=== PATIENT | male | born 1990 | race Caucasian/White ===

== ENCOUNTER 2021-05-03 17:00 | Emergency (ER) | payer OTHER ==
[~2021-05-03] VITALS: Ht 182.9 cm; Wt 80.0 kg
[~2021-05-03 17:00] MED LIST: VALPROIC ACID 250 MG/5 ML SOLUTION UDCUP PO ONE
[2021-05-03] MEDS ORDERED: DOCU-270 PO (17:41)
[2021-05-03] MEDS ORDERED: TRIL4 PO (17:41)
[2021-05-03] MEDS ORDERED: QUET200T PO (17:41)
[2021-05-03] MEDS ORDERED: OXCA300T57 PO (17:41)
[2021-05-03] MEDS ORDERED: VALP250S23 PO (17:41)
[2021-05-03] MEDS ORDERED: CLON-592 PO ×2 (17:41)
[2021-05-03] MEDS ORDERED: CLON0.2T PO ×2 (17:41)
[2021-05-03] MEDS ORDERED: BENZ1TAB10 PO (17:41)
[2021-05-03] MEDS ORDERED: CLON-595 PO (17:41)
[2021-05-03] MEDS ORDERED: POLY17PO47 PO (17:41)
[2021-05-03] MEDS ORDERED: TRAZ-252 PO (17:41)
[2021-05-03] MEDS ORDERED: RIZA10TA42 PO (17:41)
[2021-05-03] MEDS ORDERED: HALO100V4 IM (17:41)
[2021-05-03] MEDS ORDERED: TRAZ-257 PO (17:41)
[2021-05-03] MEDS ORDERED: LevETIRAcetam 1,000 MG in DEXTROSE 5%-WATER 100 ML IV ONE (17:45)
[2021-05-03] MEDS ORDERED: LORazepam 2 MG/ML VIAL IVP ONE (17:45)
[2021-05-03 17:51] LABS: EOSINOPHILS % (AUTO) 0.1 % (1.0-6.0); HEMOGLOBIN 15.7 g/dL (13.5-17.5); LYMPHOCYTES # (AUTO) 3.3 K/uL (1.0-4.8); LYMPHOCYTES % (AUTO) 23.6 % (22.0-44.0); MEAN CORPUSCULAR HEMOGLOBIN 31.3 pg (26.0-34.0); MEAN CORPUSCULAR HGB CONC 32.8 G/dL (31.0-37.0); MEAN CORPUSCULAR VOLUME 96 fL (80-100); MONOCYTES # (AUTO) 1.6 K/uL (0.1-1.0); MONOCYTES % (AUTO) 11.1 % (2.0-9.0); NEUTROPHILS # (AUTO) 8.9 K/uL (1.8-7.7); NEUTROPHILS % (AUTO) 64.2 % (40.0-70.0); PLATELET COUNT (AUTO) 546 K/uL (150-450); RED BLOOD CELL COUNT(AUTO) 5.02 MIL/uL (4.50-5.90); RED CELL DISTRIBUTION WIDTH 13.9 % (11.5-14.5)
[2021-05-03 17:54] LABS: GLUCOSE,POINT OF CARE 127 MG/DL (70-110)
[2021-05-03 18:03] LABS: ANION GAP 23 mmol/L (8-16); CALCIUM, TOTAL 9.6 mg/dL (8.8-10.5); CARBON DIOXIDE 15 mmol/L (22-29); CHLORIDE 103 mmol/L (98-107); CREATININE 1.13 mg/dL (0.60-1.30); GLOMERULAR FILTR. RATE CALC > 60 mL/min (>60); GLUCOSE,RANDOM 133 mg/dL (70-110); POTASSIUM 3.7 mmol/L (3.5-5.1); SODIUM SERUM 141 mmol/L (136-145); UREA NITROGEN, BLOOD 9 mg/dL (7-18)
[2021-05-03 18:10] LABS: ALANINE AMINOTRANSFERASE 21 U/L (12-78); ALBUMIN 4.5 g/dL (3.4-5.0); ALKALINE PHOSPHATASE 64 U/L (46-116); ASPARTATE AMINOTRANSFERASE 17 U/L (15-37); BILIRUBIN,TOTAL 0.4 mg/dL (0.1-1.0); TOTAL PROTEIN, SERUM 8.8 g/dL (6.4-8.2)
[2021-05-03] MEDS ORDERED: HALOPERIDOL LACTATE 5 MG/ML VIAL IVP ONE (21:15)
[2021-05-03] MEDS ORDERED: OXYGEN THERAPY IH SCH (21:15)
[2021-05-03] MEDS ORDERED: MIDAZOLAM HCL 2 MG/2 ML VIAL IVP ONE (21:15)
[2021-05-03] MEDS ORDERED: SODIUM CHLORIDE 0.9% 2,000 ML IV ONE (21:30)
[2021-05-03] MEDS ORDERED: OXcarbazepine 300 MG TABLET PO ONE (22:15)
[2021-05-03] MEDS ORDERED: VALPROIC ACID 250 MG/5 ML SOLUTION UDCUP PO ONE (22:30)
[2021-05-03 22:32] LABS: COVID AG,FIA SOURCE NASOPHARYNGEAL
[2021-05-04 00:22] VITALS: BP 149/77
[2021-05-04] MEDS ORDERED: MIDAZOLAM HCL 2 MG/2 ML VIAL IVP ONE (01:15)
[2021-05-04] MEDS ORDERED: CloNIDine HCL 0.2 MG TABLET PO ONE (09:00)
== END 2021-05-04 02:40 | disposition short-term general hospital (02) ==
LOC: EMS 17:02
DX: R55 Syncope and collapse (principal); R41.82 Altered mental status, unspecified; E86.0 Dehydration; F84.0 Autistic disorder; Z20.822 Contact with and (suspected) exposure to COVID-19
CPT/HCPCS: 36415; 70450; 71045; 80053; 82962; 85025; 87426; 93005; 96361; 96365; 96375; 99291; G0480; J0712; J2060; J2250; J7030; J7060

== ENCOUNTER 2023-05-10 06:24 | Day surgery (SDC) | payer OTHER ==
[~2023-05-10] VITALS: Ht 175.3 cm; Wt 97.7 kg
[~2023-05-10 06:24] MED LIST changes: +BENZ1TAB84 PO; +CLON-592 PO; +CLON-595 PO; +CLON0.2T PO; +DOCU-385 PO; +HALO100V36 IM; +OXCA300T70 PO; +PERP4TAB33 PO; +POLY17PO47 PO; +QUET200T PO; +RINGERS SOLUTION,LACTATED 1,000 ML IV ONE; +RIZA10TA42 PO; +TRAZ-252 PO; +TRAZ-257 PO; +VALP250S23 PO; -VALPROIC ACID 250 MG/5 ML SOLUTION UDCUP PO ONE
[2023-05-10] MEDS ORDERED: RINGERS SOLUTION,LACTATED 1,000 ML IV ONE (07:00)
[2023-05-10] MEDS ORDERED: AMPICILLIN SODIUM 2 GM/NS 100 ML IV ONE (07:54)
[2023-05-10 09:05] LABS: BASOPHILS % (AUTO) 0.6 % (0.0-2.0); EOSINOPHILS % (AUTO) 2.1 % (1.0-6.0); HEMATOCRIT 40.7 % (41-53); HEMOGLOBIN 14.1 g/dL (13.5-17.5); LYMPHOCYTES # (AUTO) 1.7 K/uL (1.0-4.8); LYMPHOCYTES % (AUTO) 32.3 % (22.0-44.0); MEAN CORPUSCULAR HEMOGLOBIN 30.7 pg (26.0-34.0); MEAN CORPUSCULAR HGB CONC 34.7 G/dL (31.0-37.0); MEAN CORPUSCULAR VOLUME 88 fL (80-100); MONOCYTES # (AUTO) 0.7 K/uL (0.1-1.0); MONOCYTES % (AUTO) 13.6 % (2.0-9.0); NEUTROPHILS # (AUTO) 2.8 K/uL (1.8-7.7); NEUTROPHILS % (AUTO) 51.4 % (40.0-70.0); PLATELET COUNT (AUTO) 255 K/uL (150-450); RED CELL DISTRIBUTION WIDTH 13.7 % (11.5-14.5)
[2023-05-10] MEDS ORDERED: ACET-66 PO (09:10)
[2023-05-10] MEDS ORDERED: TRIL8 PO (09:10)
[2023-05-10] MEDS ORDERED: TRAZ150T80 PO (09:10)
[2023-05-10] MEDS ORDERED: FentaNYL CITRATE PF 100 MCG/2 ML VIAL ONE (09:15)
[2023-05-10] MEDS ORDERED: DiphenhydrAMINE HCL 50 MG/ML VIAL ONE (09:16)
[2023-05-10 09:18] LABS: ALANINE AMINOTRANSFERASE 18 U/L (12-78); ALBUMIN 3.9 g/dL (3.4-5.0); ALKALINE PHOSPHATASE 65 U/L (46-116); ANION GAP 7 mmol/L (8-16); ASPARTATE AMINOTRANSFERASE 22 U/L (15-37); BILIRUBIN,TOTAL 0.7 mg/dL (0.1-1.0); CALCIUM, TOTAL 8.7 mg/dL (8.8-10.5); CARBON DIOXIDE 27 mmol/L (22-29); CHLORIDE 90 mmol/L (98-107); CREATININE 0.79 mg/dL (0.60-1.30); GLOMERULAR FILTR. RATE CALC > 60 mL/min (>60); GLUCOSE,RANDOM 96 mg/dL (70-110); POTASSIUM 4.7 mmol/L (3.5-5.1); TOTAL PROTEIN, SERUM 7.3 g/dL (6.4-8.2)
[2023-05-10 09:21] LABS: SODIUM SERUM 124 mmol/L (136-145)
[2023-05-10 09:35] LABS: INR 1.2 (0.9-1.1); PROTHROMBIN TIME 12.8 SEC (9.4-11.6)
== END 2023-05-10 10:20 | disposition home or self-care (01) ==
LOC: SURGERY 06:24
PROVIDERS: ATTEND Dentist General Practice
DX: K05.6 Periodontal disease, unspecified (principal); Z53.8 Procedure and treatment not carried out for other reasons; K21.9 Gastro-esophageal reflux disease without esophagitis; K59.00 Constipation, unspecified; F63.81 Intermittent explosive disorder; R62.50 Unspecified lack of expected normal physiological development in childhood; Z79.01 Long term (current) use of anticoagulants; Z79.899 Other long term (current) drug therapy; K02.9 Dental caries, unspecified
CPT/HCPCS: 71045; 80053; 85025; 85610; 85730; 36415; 93005; J0290; J1200; J3010; J7120

== ENCOUNTER 2023-11-29 06:31 | Day surgery (SDC) | payer OTHER ==
[~2023-11-29] VITALS: Ht 182.9 cm; Wt 100.5 kg
[~2023-11-29 06:31] MED LIST changes: +ACET-66 PO; -HALO100V36 IM; -OXCA300T70 PO; -PERP4TAB33 PO; -RINGERS SOLUTION,LACTATED 1,000 ML IV ONE; -TRAZ-252 PO; -TRAZ-257 PO; +TRAZ150T80 PO; +TRIL8 PO
[2023-11-29] MEDS ORDERED: AMPICILLIN SODIUM 2 GM/NS 100 ML IV ONE (07:46)
[2023-11-29] MEDS ORDERED: DIPH-1243 PO (07:47)
[2023-11-29] MEDS ORDERED: PERP4TAB33 PO (07:47)
[2023-11-29] MEDS ORDERED: PALI156D IM (07:47)
[2023-11-29] MEDS ORDERED: BISA-151 PO (07:47)
[2023-11-29] MEDS ORDERED: LIDO15CR6 TP (07:47)
[2023-11-29] MEDS ORDERED: POLY119P3 PO (07:47)
[2023-11-29] MEDS ORDERED: OXCA300T70 PO (07:47)
[2023-11-29 08:16] LABS: BASOPHILS % (AUTO) 0.8 % (0.0-2.0); EOSINOPHILS % (AUTO) 3.2 % (1.0-6.0); HEMATOCRIT 39.8 % (41-53); LYMPHOCYTES # (AUTO) 1.5 K/uL (1.0-4.8); LYMPHOCYTES % (AUTO) 36.2 % (22.0-44.0); MEAN CORPUSCULAR HEMOGLOBIN 31.9 pg (26.0-34.0); MEAN CORPUSCULAR HGB CONC 35.2 G/dL (31.0-37.0); MEAN CORPUSCULAR VOLUME 90 fL (80-100); MONOCYTES # (AUTO) 0.5 K/uL (0.1-1.0); MONOCYTES % (AUTO) 11.4 % (2.0-9.0); NEUTROPHILS % (AUTO) 48.4 % (40.0-70.0); PLATELET COUNT (AUTO) 218 K/uL (150-450); WHITE BLOOD COUNT (AUTO) 4.2 K/uL (4.5-11.0)
[2023-11-29 08:27] LABS: ANION GAP 6 mmol/L (8-16); CARBON DIOXIDE 30 mmol/L (22-29); CHLORIDE 92 mmol/L (98-107); CREATININE 0.69 mg/dL (0.60-1.30); GLOMERULAR FILTR. RATE CALC > 60 mL/min (>60); GLUCOSE,RANDOM 86 mg/dL (70-110); POTASSIUM 4.3 mmol/L (3.5-5.1); SODIUM SERUM 128 mmol/L (136-145); UREA NITROGEN, BLOOD 6 mg/dL (7-18)
[2023-11-29 08:30] LABS: INR 1.3 (0.9-1.1); PROTHROMBIN TIME 13.5 SEC (9.4-11.6)
[2023-11-29 08:33] LABS: ALANINE AMINOTRANSFERASE 19 U/L (12-78); ALBUMIN 3.7 g/dL (3.4-5.0); ALKALINE PHOSPHATASE 61 U/L (46-116); ASPARTATE AMINOTRANSFERASE 22 U/L (15-37); BILIRUBIN,TOTAL 0.5 mg/dL (0.1-1.0); TOTAL PROTEIN, SERUM 6.9 g/dL (6.4-8.2)
[2023-11-29] MEDS ORDERED: PROPOFOL 1% 20 ML VIAL IVP ONE (12:00)
[2023-11-29] MEDS ORDERED: LIDOCAINE/PF 2% 5 ML VIAL IM ONE (12:00)
[2023-11-29] MEDS ORDERED: ROCURONIUM BROMIDE 10 MG/ML 5 ML VIAL IVP ONE (12:00)
[2023-11-29] MEDS ORDERED: ONDANSETRON HCL 4 MG/2 ML VIAL IVP ONE (12:00)
[2023-11-29] MEDS ORDERED: DEXAMETHASONE SOD PHOS 4 MG/ML VIAL IVP ONE (12:00)
[2023-11-29] MEDS ORDERED: SUGAMMADEX SODIUM 200 MG/2 ML VIAL IVP ONE (12:00)
[2023-11-29] MEDS: RINGERS SOLUTION,LACTATED 1,000 ML IV ONE (13:16)
== END 2023-11-29 13:05 | disposition home or self-care (01) ==
LOC: SURGERY 06:31
PROVIDERS: ATTEND Dentist General Practice
DX: K05.30 Chronic periodontitis, unspecified (principal); K02.9 Dental caries, unspecified; F63.81 Intermittent explosive disorder; K59.00 Constipation, unspecified; F84.0 Autistic disorder; K03.6 Deposits [accretions] on teeth; K21.9 Gastro-esophageal reflux disease without esophagitis; Z98.890 Other specified postprocedural states; Z79.01 Long term (current) use of anticoagulants
CPT/HCPCS: 41899; 71045; 80053; 85025; 85610; 85730; 36415; 93005; J0290; J2704; J1100; J3490 ×2; J2405; Q9967

== ENCOUNTER 2025-04-06 12:43 | Emergency (ER) | payer OTHER ==
[~2025-04-06 12:43] MED LIST changes: +BENZ-247 PO; -BENZ1TAB84 PO; +BISA-151 PO; +DIPH-1243 PO; +LIDO15CR6 TP; +OXCA300T70 PO; +PALI156D IM; +PERP4TAB33 PO; +POLY119P3 PO; -RIZA10TA42 PO
[2025-04-06] MEDS: LORazepam 2 MG/ML VIAL IM ONE (13:16)
[2025-04-06] MEDS ORDERED: VALP250S27 PO (14:08)
[2025-04-06] MEDS ORDERED: RIZA5TAB83 PO (14:08)
[2025-04-06] MEDS ORDERED: CHOL200074 PO (14:08)
[2025-04-06] MEDS ORDERED: ASCO500T20 PO (14:08)
[2025-04-06] MEDS: BACITRACIN 28 GM OINTMENT TP ONE (14:11)
== END 2025-04-06 14:13 | disposition home or self-care (01) ==
LOC: EMS 12:45
DX: S61.511A Laceration without foreign body of right wrist, initial encounter (principal); F84.0 Autistic disorder; Z98.890 Other specified postprocedural states; Z79.899 Other long term (current) drug therapy; X58.XXXA Exposure to other specified factors, initial encounter; Y93.89 Activity, other specified; Y92.89 Other specified places as the place of occurrence of the external cause; Y99.8 Other external cause status
CPT/HCPCS: 99283; 96372; J2060

== ENCOUNTER 2025-08-27 06:09 | Day surgery (SDC) | payer OTHER ==
[~2025-08-27] VITALS: Ht 182.9 cm; Wt 100.5 kg
[~2025-08-27 06:09] MED LIST changes: +ASCO500T20 PO; +CHOL200074 PO; -LIDO15CR6 TP; -PERP4TAB33 PO; -POLY17PO47 PO; +RIZA5TAB83 PO; -VALP250S23 PO; +VALP250S27 PO
[2025-08-27] MEDS ORDERED: AMPICILLIN SODIUM 2 GM/NS 100 ML IV ONE (07:17)
[2025-08-27] MEDS ORDERED: RINGERS SOLUTION,LACTATED 1,000 ML IV ONE (07:58)
[2025-08-27 08:41] LABS: CALCIUM, TOTAL 8.9 mg/dL (8.8-10.5); CREATININE 0.59 mg/dL (0.60-1.30); GLOMERULAR FILTR. RATE CALC > 60 mL/min (>60); GLUCOSE,RANDOM 91 mg/dL (70-110); SODIUM SERUM 127 mmol/L (136-145); UREA NITROGEN, BLOOD 6 mg/dL (7-18)
[2025-08-27] MEDS: RINGERS SOLUTION,LACTATED 1,000 ML IV ONE (08:42)
[2025-08-27 08:44] LABS: PLATELET COUNT (AUTO) 297 K/uL (150-450); RED BLOOD CELL COUNT(AUTO) 4.58 MIL/uL (4.50-5.90); RED CELL DISTRIBUTION WIDTH 13.9 % (11.5-14.5); WHITE BLOOD COUNT (AUTO) 5.4 K/uL (4.5-11.0)
[2025-08-27 08:46] LABS: ASPARTATE AMINOTRANSFERASE 25 U/L (15-37); TOTAL PROTEIN, SERUM 7.5 g/dL (6.4-8.2)
[2025-08-27] MEDS ORDERED: KETAMINE HCL 50 MG/ML 10 ML VIAL ONE (08:58)
[2025-08-27] MEDS ORDERED: ROCURONIUM BROMIDE 10 MG/ML 5 ML VIAL ONE (09:20)
[2025-08-27] MEDS ORDERED: SUGAMMADEX SODIUM 200 MG/2 ML VIAL IVP ONE (09:20)
[2025-08-27] MEDS ORDERED: PROPOFOL 1% 20 ML VIAL IVP ONE (09:20)
[2025-08-27] MEDS ORDERED: LIDOCAINE/PF 2% 5 ML SYRINGE IVP ONE (09:20)
[2025-08-27] MEDS ORDERED: ONDANSETRON HCL 4 MG/2 ML VIAL ONE (09:20)
[2025-08-27] MEDS ORDERED: DEXAMETHASONE SOD PHOS 4 MG/ML VIAL ONE (09:20)
== END 2025-08-27 10:25 | disposition home or self-care (01) ==
LOC: SURGERY 06:09
PROVIDERS: ATTEND Dentist General Practice
DX: K05.30 Chronic periodontitis, unspecified (principal); K02.9 Dental caries, unspecified; E66.9 Obesity, unspecified; F88 Other disorders of psychological development; G40.909 Epilepsy, unspecified, not intractable, without status epilepticus; K21.9 Gastro-esophageal reflux disease without esophagitis
CPT/HCPCS: 41899; 71045; 80053; 85025; 85610; 85730; 36415; 93005; J0290; J2704; J1100; J3490 ×4; J2405; J7120